=== PATIENT | male | born 1995 | race Caucasian/White ===

== ENCOUNTER 2017-06-13 17:25 | Inpatient (IN) | payer BC, OTHER ==
[~2017-06-13] VITALS: Ht 180.3 cm; Wt 65.8 kg
--- NOTE | 2017-06-13 22:50 | NUR ---
Pre-admission assessment Patient is a 22-year old, male, seen at intake, AAOx4, no SOB and no anxiety noted at this time. Discussed with patient admission policies of the unit. Patient is coherent and able to respond to questions appropriately. Patient reported that he is from [place]. He reports NKA and with history of withdrawal-induced seizure in 2014. Pt is ambulatory with steady gait. Pt reports that he has been using these substances: 1) Alcohol-Beer, Tequila-drinking for 8 years, but for the past 4 years has been consuming 5-6 servings of with beer or tequila, last drink was 06/13/17 at 2000, a shot of whiskey. 2) Xanax-Pt reports taking 10 mg PO daliy for the past 2 weeks, last took 10 mg on 06/11/2017. 3) Methamphetamine-Pt reports using for the past 2 weeks via smoke, with frequency of 3x per week on average, smoked 1/2 gram. 4) Crack Cocaine-Pt reports using for 1 year, using 1/2 gram on average once a week, last use was 06/11/2017. 5) [place]-Pt reports using via smoke 1-2 joints daily for 5 years. Last smoke was 06/13/2017. Vital signs taken and as follows: SC=714/72, P=88, O2 sat on RA=97%, RR=20, T=98.4. Pt verbalized instructions and teachings regarding disposal of narcotic and other controlled home meds, unit protocols such as taking of vital signs Q4H and handling and disposal of contraband.
--- NOTE | 2017-06-14 00:30 | NUR ---
ADMISSION Pt is a 22 yo male who arrived on the [facility] at 2305 on 06/13/17 for medically supervised detox. He is A&O x4 and ambulatory with a steady gait. Body check performed by CELL INSTALLER and skin check performed by the nurse. Pt reports NKA and wishes to be full code status. Pts pupils are noted to be dilated and he smells of alcohol. He answers all questions appropriately with clear speech. Vital signs in intake are B/P 127/72, HR 88, RR 20, O2 sat 97%, T 98.1, pain 0/10. Pt is 5'1"1 and weighs 145lb. He reports having one seizure in 2014 when using Xanax and Adderall together. Pt denies any other past medical history. Lung sounds clear, PERRLA, brisk capillary refill, bowel sounds present, longwall foreman strength strong and equal, skin is intact. Last BM was today. History of Use 1) ETOH/Beer 1,440mL on 4 days per week for 4 weeks. Last drank 4 shots of whiskey and 375mL of champagne on 06/13/17 at 2100. He has drank ETOH for 8 years. 2) ETOH/Whiskey 4 shots on 2 days per week for 4 weeks. Last drank 4 shots of whiskey and 375mL of champagne on 06/13/17 at 2100. 3) BZD/Xanax 10mg on 5 days per week for the past 4 weeks. Last used 4mg on 06/12/17. He has used xanax for 6 years. 4) Methamphetamine smoking 0.5 grams per day for the past 4 weeks. Last used 06/13/17 at 2100. He has used Meth for 1 year. 5) Crack Cocaine 0.25 grams per day for the past 4 weeks. Last used 06/06/17. He has used Crack Cocaine for 2 years. 6) Marijuana 0.5 grams per day for the past 4 weeks. Last used 06/14/17. He has used Marijuana for 8 years. Treatment History [facility] 11/2016 [facility] 10/2016 [place] in 2014 for 6 months. Pt smokes 4 cigarettes per day. He decided to come to treatment today because "I have no place to live". Pt was living with his parents and was told to leave due to his substance abuse. He works as a room server. Symptoms when he doesn't use include "sweating, irritability, and cravings". He reports that he has lost 15lb over the past 2 weeks related to methamphetamine use. Pt has been an IV drug user in the past but is not currently. His longest period of sobriety was 7 months in 2016. CIWA on admission is 2. Urine drug screen provided. He denies having a primary care physician. Admission orders received. Pt educated regarding use of the call light and all questions answered. Bed is down with call light in reach.
[2017-06-14] MEDS ORDERED: DICYCLOMINE HCL 20 MG TABLET PO PRN (00:45)
[2017-06-14] MEDS ORDERED: ONDANSETRON 4 MG/2 ML VIAL IM PRN (00:45)
[2017-06-14] MEDS ORDERED: MIRALAX 17 GM POWD.PACK PO PRN (00:45)
[2017-06-14] MEDS ORDERED: ACETAMINOPHEN 325 MG TABLET PO PRN (00:45)
[2017-06-14] MEDS ORDERED: THIAMINE HCL 200 MG/2 ML VIAL IM ONE (00:45)
[2017-06-14] MEDS ORDERED: MAGNESIUM HYDROXIDE 30 ML LIQUID UDC PO PRN (00:45)
[2017-06-14] MEDS ORDERED: HYDROXYZINE PAMOATE 25 MG CAPSULE PO PRN (00:45)
[2017-06-14] MEDS ORDERED: LORAZEPAM 1 MG TABLET PO PRN ×2 (00:45)
[2017-06-14] MEDS ORDERED: ONDANSETRON ODT 4 MG TAB.RAPDIS SL PRN (00:45)
[2017-06-14] MEDS ORDERED: CLONIDINE HCL 0.1 MG TABLET PO PRN (00:45)
[2017-06-14] MEDS ORDERED: LORAZEPAM 2 MG/1 ML VIAL IM PRN (00:45)
[2017-06-14] MEDS ORDERED: MAG HYDROX/AL HYDROX/SIMETH 30 ML LIQUID UDC PO PRN (00:45)
[2017-06-14] MEDS ORDERED: IBUPROFEN 400 MG TABLET PO PRN (00:45)
[2017-06-14] MEDS ORDERED: LOPERAMIDE HCL 2 MG CAPSULE PO PRN ×2 (00:45)
[2017-06-14] MEDS ORDERED: diphenhydrAMINE 50 MG CAPSULE PO PRN (00:45)
[2017-06-14] MEDS ORDERED: diphenhydrAMINE 50 MG CAPSULE ONE (00:54)
[2017-06-14] MEDS ORDERED: LORAZEPAM 1 MG TABLET ONE (00:54)
--- NOTE | 2017-06-14 01:00 | NUR ---
PRN Ativan Pt reports feeling anxious and unable to relax. CIWA 5. PRN Ativan administered.
[2017-06-14] MEDS ORDERED: THIAMINE HCL 200 MG/2 ML VIAL ONE (01:08)
--- NOTE | 2017-06-14 02:00 | NUR ---
PRN Ativan reassessment PRN Ativan effective. Pt is lying in bed resting with eyes closed. Respirations even and unlabored. Safety measures in place.
[2017-06-14 02:06] LABS: BILIRUBIN,TOTAL 0.6 mg/dL (0.2-1.0); CREATININE 1.1 mg/dL (0.6-1.3); MAGNESIUM 2.1 mg/dL (1.8-2.4); POTASSIUM 4.1 mmol/L (3.5-5.1); TOTAL PROTEIN, SERUM 8.2 g/dL (6.4-8.2)
[2017-06-14 02:15] LABS: THYROID STIMULATING HORMONE 3.144 mIU/mL (0.358-3.740)
[2017-06-14 02:37] LABS: BASOPHILS % (AUTO) 0.5 % (0.0-2.0); EOSINOPHILS % (AUTO) 0.2 % (0.0-7.0); HEMATOCRIT 47.4 % (40-50); HEMOGLOBIN 16.2 G/DL (14.0-18.0); LYMPHOCYTES # (AUTO) 2.4 K/UL (0.8-4.8); LYMPHOCYTES % (AUTO) 40.6 % (20.5-51.5); MEAN CORPUSCULAR HEMOGLOBIN 30.3 UUG (27.0-31.0); MEAN CORPUSCULAR HGB CONC 34 g/dL (32.0-37.0); MEAN CORPUSCULAR VOLUME 88.6 FL (82.0-92.0); MONOCYTES % (AUTO) 10.2 % (0.0-11.0); NEUTROPHILS # (AUTO) 2.9 K/UL (1.8-8.9); NEUTROPHILS % (AUTO) 48.5 % (38.5-71.5); PLATELET COUNT (AUTO) 236 K/UL (150-450); RED BLOOD CELL COUNT(AUTO) 5.34 MIL/UL (4.7-6.1)
[2017-06-14 02:38] LABS: MONOCYTES # (AUTO) 0.6 K/UL (0.1-1.30)
[2017-06-14 04:00] VITALS: BP 112/56
[2017-06-14 04:14] LABS: *AMPHETAMINE, URINE POSITIVE (NEGATIVE); *BARBITURATE, URINE NEGATIVE (NEGATIVE); *CANNABINOID, URINE POSITIVE (NEGATIVE); *COCCAINE, URINE NEGATIVE (NEGATIVE); *OPIATE, URINE NEGATIVE (NEGATIVE); *PHENCYCLIDINE SCREEN,URINE NEGATIVE (NEGATIVE)
--- NOTE | 2017-06-14 07:12 | NUR ---
Start of Shift Endorsement received from nightshift nurse. PT is a 22 y/o male admitted for alcohol, xanax, meth and marijuana dependence. PT has not been placed on any tapers at this time. All withdrawal symptoms are being treated by PRN Medications until farther assessment by MD. Pt is moderately withdrawing AEB CIWA 5. Pt reports sleeping 5 hours. PT received PRN Ativan during nightshift. VS WNL. Full code. PT is alert and oriented x4. Pt is in STABLE condition at this time. Remains compliant with medication and diet regimen. All needs have been met, All safety measures in place per hospital policy. Bed in lowest position, side rails up x2, call-light within reach. Will continue to monitor
--- NOTE | 2017-06-14 07:20 | NUR ---
END OF SHIFT Report provided to day shift nurse. Pt is lying in bed resting. He is a 22 yo male admitted to [facility] on 06/13 for ETOH and BZD dependence. He is A&O and ambulatory. NKA, full code status, and on a regular diet. Pt has a h/o seizure x1 in 2014. He denies any other PMH. Last CIWA was 5 with PRN Ativan administered. He was able to sleep after for 5 hours. Pt drank 800mL. Fall and seizure precautions ordered. Bed is down with call light in reach.
[2017-06-14 08:00] VITALS: BP 98/55
[2017-06-14] MEDS: MULTIVITAMINS,THERAPEUTIC TABLET PO SCH (09:37)
[2017-06-14] MEDS: THIAMINE HCL 100 MG TABLET PO SCH (09:37)
[2017-06-14] MEDS: FOLIC ACID 1 MG TABLET PO SCH (09:37)
[2017-06-14] MEDS: LORAZEPAM 1 MG TABLET PO SCH ×4 (10:45→21:21)
[2017-06-14 12:00] VITALS: BP 100/52
[2017-06-14 16:00] VITALS: BP 122/65
--- NOTE | 2017-06-14 18:59 | NUR ---
End of Shift Endorsement given to nightshift nurse. PT is a 22 y/o male admitted for alcohol, xanax, meth and marijuana dependence. PT has been placed on a 5 day Ativan taper per Dr. Hager. PT has refused the first two doses stating that he doesn't want any medications. He did however take the 1700 dose after being explained the risks of alcohol and benzo withdrawals. Pt has not received any PRN medications. Pt has participated in groups and activities. Pt is moderately withdrawing AEB CIWA 6. Intake: 2560ml, Void x4, BM x1. PT received PRN Ativan during nightshift. VS WNL. Full code. PT is alert and oriented x4. Pt is in STABLE condition at this time. Remains compliant with medication and diet regimen. All needs have been met, All safety measures in place per hospital policy. Bed in lowest position, side rails up x2, call-light within reach. Will continue to monitor
[2017-06-14 20:00] VITALS: BP 138/83
--- NOTE | 2017-06-14 20:05 | NUR ---
START OF SHIFT Received report from day shift nurse. Pt attended a group meeting and returned to his room after. He is a 22 yo male admitted to [facility] on 06/13 for ETOH and BZD dependence. He is A&O x4 and ambulatory. NKA, full code status, and on a regular diet. He has PMH of seizure x1 in 2014. On admission he reported using beer 1440mL 4 days per week, whiskey 4 shots 2 days per week, Xanax 10mg on 5 days per week, methamphetamine 0.5 grams per day, crack cocaine 0.25 grams per day, and marijuana. Pt started a 5 day Ativan taper today. He reports anxiety and has mild hand tremors. Fall and seizure precautions in place. Bed is down with call light in reach.
[2017-06-15] VITALS: BP 112/74
--- NOTE | 2017-06-15 | NUR ---
0000 CIWA deferred CIWA ordered Q4HWA. Pt is lying in bed resting with eyes closed. Vital signs obtained. Safety measures in place.
[2017-06-15 04:00] VITALS: BP 108/44
--- NOTE | 2017-06-15 04:00 | NUR ---
0400 CIWA deferred CIWA ordered Q4HWA. Pt is lying in bed resting with eyes closed. Vital signs obtained. Safety measures in place.
--- NOTE | 2017-06-15 07:00 | NUR ---
Start of Shift Endorsement received from nightshift nurse. PT is a 22 y/o male admitted for alcohol, xanax, meth and marijuana dependence. Pt has been placed on a Modified Ativan taper. Pt has been refusing all Ativan doses. PT is tolerating the detox process and mildly withdrawing AEB CIWA 3. Pt reports sleeping 8 hours. PT did not receive any PRN medications. VS WNL. Full code. PT is alert and oriented x4. Pt is in STABLE condition at this time. Remains compliant with medication and diet regimen. All needs have been met, All safety measures in place per hospital policy. Bed in lowest position, side rails up x2, call-light within reach. Will continue to monitor
--- NOTE | 2017-06-15 07:12 | NUR ---
END OF SHIFT Report provided to day shift nurse. Pt is lying in bed resting. He is a 22 yo male admitted to [facility] on 06/13 for ETOH and BZD dependence. He is A&O and ambulatory. NKA, full code status, and on a regular diet. He has PMH of seizure x1 in 2014. On admission he reported using beer 1440mL 4 days per week, whiskey 4 shots 2 days per week, Xanax 10mg on 5 days per week, methamphetamine 0.5 grams per day, crack cocaine 0.25 grams per day, and marijuana. Pt started a 5 day Ativan taper on 06/14 which is working well to manage withdrawal symptoms. Last CIWA was 3. No PRN medications administered. He drank 500mL and slept for 8 hours. Fall and seizure precautions in place. Bed is down with call light in reach.
[2017-06-15 08:00] VITALS: BP 108/69
[2017-06-15] MEDS: THIAMINE HCL 100 MG TABLET PO SCH (08:44)
[2017-06-15] MEDS: MULTIVITAMINS,THERAPEUTIC TABLET PO SCH (08:45)
[2017-06-15] MEDS: FOLIC ACID 1 MG TABLET PO SCH (08:45)
[2017-06-15] MEDS ORDERED: TUBERCULIN,PURIF.PROT.DERIV. 5 TU/0.1 ML TEST ID ONE (09:00)
[2017-06-15] MEDS ORDERED: LORAZEPAM 1 MG TABLET PO SCH (09:00)
[2017-06-15 12:00] VITALS: BP 121/74
[2017-06-15] MEDS ORDERED: LORAZEPAM 1 MG TABLET PO PRN ×2 (12:30)
[2017-06-15 14:10] LABS: HEPATITIS B SURFACE AG Negative (Negative)
[2017-06-15 16:00] VITALS: BP 135/71
--- NOTE | 2017-06-15 19:07 | NUR ---
End of Shift Endorsement given to nightshift nurse. PT is a 22 y/o male admitted for alcohol, xanax, meth and marijuana dependence. PT has been placed on a 5 day Ativan taper per Dr. Hager. Pt has completed the taper and has been scheduled for discharge on 06/16/17. Pt has received all discharge education and all discharge documentation has been completed. . Pt has not received any PRN medications. Pt has participated in groups and activities. Pt is mildly withdrawing AEB CIWA 2. Intake: 2175ml, Void x4, BM x1. PT received PRN Ativan during nightshift. VS WNL. Full code. PT is alert and oriented x4. Pt is in STABLE condition at this time. Remains compliant with medication and diet regimen. All needs have been met, All safety measures in place per hospital policy. Bed in lowest position, side rails up x2, call-light within reach. Will continue to monitor
[2017-06-15 20:00] VITALS: BP 118/64
--- NOTE | 2017-06-15 20:05 | NUR ---
START OF SHIFT Received report from day shift nurse. Pt attended a group meeting and returned to his room after. He is a 22 yo male admitted to [facility] on 06/13 for ETOH and BZD dependence. He is A&O x4 and ambulatory. NKA, full code status, and on a regular diet. He has PMH of seizure x1 in 2014. On admission he reported using beer 1440mL 4 days per week, whiskey 4 shots 2 days per week, Xanax 10mg on 5 days per week, methamphetamine 0.5 grams per day, crack cocaine 0.25 grams per day, and marijuana. Modified Ativan taper complete and he is scheduled for discharge tomorrow. Pt denies s/s of withdrawal He verbalizes that he is looking forward to the next step in his recovery. Fall and seizure precautions in place. Bed is down with call light in reach.
[2017-06-16] VITALS: BP 126/64
[2017-06-16] MEDS ORDERED: HYDR-3895 PO (00:14)
--- NOTE | 2017-06-16 00:30 | NUR ---
PRN Vistaril and Benadryl Pt reports feeling anxious and unable to relax and fall asleep. PRN Vistaril and Benadryl administered.
--- NOTE | 2017-06-16 01:30 | NUR ---
PRN Vistaril and Benadryl reassessment PRN Vistaril and Benadryl effective. Pt is lying in bed resting with eyes closed. Respirations even and unlabored. Safety measures in place.
--- NOTE | 2017-06-16 04:00 | NUR ---
0400 Vitals refused and CIWA deferred Pt refused to be woken for 0400 vitals. Pt is lying in bed resting with eyes closed. Respirations even and unlabored. Safety measures in place.
--- NOTE | 2017-06-16 07:20 | NUR ---
ENDDarcie OF SHIFT Report provided to day shift nurse. Pt is lying in bed resting. He is a 22 yo male admitted to [facility] on 06/13 for ETOH and BZD dependence. He is A&O x4 and ambulatory. NKA, full code status, and on a regular diet. He has PMH of seizure x1 in 2014. On admission he reported using beer 1440mL 4 days per week, whiskey 4 shots 2 days per week, Xanax 10mg on 5 days per week, methamphetamine 0.5 grams per day, crack cocaine 0.25 grams per day, and marijuana. Modified Ativan taper complete and he is scheduled for discharge today. Last CIWA was 3. PRN Vistaril and Benadryl administered. He drank 855mL and slept for 7 hours.
--- NOTE | 2017-06-16 07:38 | NUR ---
START OF SHIFT NOTE 22 year old male admitted to [facility] for medically supervised withdrawal from alcohol and benzodiazepines. NKA and NKDA. Received report from night RN who also states history of use of methamphetamine and cocaine. Plan for discharge today to sober living home. Per night RN, Pt last CIWA 3 and midnight, received Benadryl and Vistaril PRN for sleep and slept 7 hours. On 0730 patient round Pt alert to verbal, oriented, notified of discharge this am and Pt states he is aware. Pt calm, cooperative. Bed in low position and locked, call silva within reach, side rails up x 2, fall and seizure precautions in place and observed. Will continue to monitor.
[2017-06-16 08:00] VITALS: BP 106/67
[2017-06-16] MEDS ORDERED: LORAZEPAM 1 MG TABLET PO SCH (09:00)
[2017-06-16] MEDS: FOLIC ACID 1 MG TABLET PO SCH (09:19)
[2017-06-16] MEDS: THIAMINE HCL 100 MG TABLET PO SCH (09:19)
[2017-06-16] MEDS: MULTIVITAMINS,THERAPEUTIC TABLET PO SCH (09:19)
--- NOTE | 2017-06-16 09:37 | NUR ---
DISCHARGE NOTE 22 year old male admitted to [facility] for medically supervised withdrawal from alcohol and benzodiazepines. NKA and NKDA. Pt in stable condition with vital signs stable, alert and oriented x4, skin intact, denies suicidal or homicidal ideations. All discharge paperwork completed, dated, and signed. Pt educated about discharge instructions for hep C, smoking cessation, substance use. Pt verbalizes understanding. Last CIWA 0 at 0920. Discharged at 0937 to [facility], transportation per [employer]. 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 Pt left building with all of his belonging and prescriptions. has been contacted and notified of Pt's discharge.
[2017-06-17] MEDS ORDERED: LORAZEPAM 1 MG TABLET PO SCH (09:00)
[2017-06-18] MEDS ORDERED: LORAZEPAM 1 MG TABLET PO SCH (09:00)
== END 2017-06-16 09:37 | disposition home or self-care (01) | DRG 895 ==
LOC: EDBD 22:20 → SRC 22:20
PROVIDERS: ADMIT Internal Medicine; ATTEND Internal Medicine
PROC: HZ2ZZZZ Detoxification Services for Substance Abuse Treatment (ICD-10-PCS; principal; 2017-06-13)
PROC: HZ41ZZZ Group Counseling for Substance Abuse Treatment, Behavioral (ICD-10-PCS; 2017-06-14)
DX: F10.230 Alcohol dependence with withdrawal, uncomplicated (principal); F14.20 Cocaine dependence, uncomplicated; F15.20 Other stimulant dependence, uncomplicated; F13.230 Sedative, hypnotic or anxiolytic dependence with withdrawal, uncomplicated; F10.220 Alcohol dependence with intoxication, uncomplicated; Y90.5 Blood alcohol level of 100-119 mg/100 ml; F17.210 Nicotine dependence, cigarettes, uncomplicated; Z59.0 Homelessness; F12.90 Cannabis use, unspecified, uncomplicated
CPT/HCPCS: 36415; 70030-TC; 80307; 80324; 80346; 80349; 83690; 83735; 84443; 85025; 86592; 86705; 86803; 87340; 87806; A4663; G0480; J3411; Q0163